=== PATIENT | female | born 1980 ===

== ENCOUNTER 2022-10-20 06:50 | Emergency (ER) | payer SELFPAY ==
[~2022-10-20] VITALS: Ht 152.4 cm; Wt 79.7 kg
[2022-10-20] MEDS ORDERED: ONDANSETRON 4 MG/2 ML (SDV) Z0FRAN IVP STA (07:27)
[2022-10-20] MEDS ORDERED: KETOROLAC 15 MG/ML VIAL IVP STA (07:27)
[2022-10-20] MEDS ORDERED: fentaNYL INJ 100 MCG/2 ML AMP IVP STA (07:27)
[2022-10-20] MEDS ORDERED: NS IV 1000 ML 1,000 ML IV STA (07:27)
[2022-10-20 07:33] LABS: BILIRUBIN,URINE NEGATIVE (NEGATIVE); CLARITY,URINE TURBID; COLOR,URINE RED; GLUCOSE, URINE (UA) 1+ (NEGATIVE); KETONES,URINE 1+ (NEGATIVE); LEUKOCYTE ESTERASE ,URINE 3+ (NEGATIVE); NITRITE,URINE POSITIVE (NEGATIVE); PH,URINE 6.5 (5-9); PROTEIN,URINE 3+ (NEGATIVE); RBC,URINE TNTC /HPF
[2022-10-20 07:33] LABS: BASOPHILS # (AUTO) 0.1 10^3/uL (0.0-0.1); BASOPHILS % (AUTO) 1 % (0-10); EOSINOPHILS # (AUTO) 0.3 10^3/uL (0.0-0.3); EOSINOPHILS % (AUTO) 2 % (0-10); HEMATOCRIT 39 % (35-52); HEMOGLOBIN 13.6 g/dL (11.5-16.0); LYMPHOCYTES # (AUTO) 1.4 10^3/uL (1.0-4.0); LYMPHOCYTES % (AUTO) 12 % (12-44); MEAN CORPUSCULAR HEMOGLOBIN 29 pg (25-34); MEAN CORPUSCULAR HGB CONC 35 g/dL (32-36); MEAN CORPUSCULAR VOLUME 83 fL (80-99); MEAN PLATELET VOLUME 10.4 fL (9.0-12.2); MONOCYTES # (AUTO) 0.4 10^3/uL (0.0-1.0); MONOCYTES % (AUTO) 4 % (0-12); NEUTROPHILS # (AUTO) 9.3 10^3/uL (1.8-7.8); NEUTROPHILS % (AUTO) 81 % (42-75); PLATELET COUNT 282 10^3/uL (130-400); WHITE BLOOD COUNT 11.4 10^3/uL (4.3-11.0)
[2022-10-20 07:49] LABS: ALBUMIN 4.3 GM/DL (3.2-4.5); BILIRUBIN,TOTAL 0.3 MG/DL (0.1-1.0); CALCIUM 9.1 MG/DL (8.5-10.1); CREATININE SERUM 0.69 MG/DL (0.60-1.30); POTASSIUM 3.9 MMOL/L (3.6-5.0); TOTAL PROTEIN 7.4 GM/DL (6.4-8.2)
[2022-10-20] MEDS ORDERED: TELM40TA6 PO (07:56)
--- NOTE | 2022-10-20 07:59 | ED Abdominal Pain ---
General Chief Complaint: Abdominal/GI Problems Stated Complaint: LOWER ABD PAIN Nursing Triage Note: PT AMBULATE TO ROOM FS02 WITHOUT DIFFICULTY WITH C/O LOWER ABD PAIN STARTING AT 0400 TODAY. PT REPORTS TAKING ADVIL AT 0430 FOR PAIN. PT REPORTS VOMITING X1 BECAUSE OF THE PAIN. PT REPORTS LBM TODAY AT 0500. 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 She last ate around 430 or 5 PM. She did drink a little bit of water to take Advil at 4:30 AM. She had an episode of vomiting 1 time because of the pain after taking the Advil. Her last bowel movement was around 5 AM and was normal for her. She denies having any black tarry stool or blood in her stool. She is on her menstrual cycle currently but has never had severe pain like this with menses. She denies any vaginal discharge but has had painful urination. She denies any prior abdominal surgeries. She is G4, P4. She speaks a little bit of Wallisian but the is the main independent historian for the patient due to language barriers. Her point lay [place] language is Serbian and she is visiting from [place]. She does have a history of high blood pressure and takes Micardis (Telmisartan) 40 mg a day. She denies any allergies to medicines. Timing/Duration: 1-3 Hours Severity/Quality: Severe, Sharp, Stabbing Location: RLQ, Suprapubic Radiation: No Radiation Activities at Onset: Sleeping Modifying Factors: Worsens With Movement, Worsens With Palpation, Worsens With Urinating Associated Symptoms: Back Pain (low back pain); No Chest Pain, No Diaphoresis, No Fever/Chills, No Fatigue, No Headache, No Heartburn; Nausea/Vomiting; No Rash, No Shortness of Air, No Swelling/Mass in Abdomen, No Syncope, No Weakness Allergies and Home Medications Allergies Coded Allergies: No Known Drug Allergies (Unverified , 10/20/22) Patient Home Medication List Home Medication List Reviewed: Yes Ibuprofen (Ibuprofen) 600 Mg Tablet, 600 MG PO Q6H PRN for PAIN Prescribed by: KOKI LANTIGUAYART on 10/20/22826 Nitrofurantoin Monohyd/M-Cryst (Macrobid 100 mg Capsule) 100 Mg Capsule, 1 TAB PO BID Prescribed by: KOKI BURTONRT on 10/20/22826 Ondansetron (Ondansetron Odt) 4 Mg Tab.rapdis, 4 MG PO Q6H PRN for NAUSEA/VOMITING Prescribed by: KOKI GARCIA on 10/20/22826 Telmisartan (Telmisartan) 40 Mg Tablet, 40 MG PO DAILY Prescribed by: KOKI GARCIA on 10/20/22 075 Last Action: New Order Review of Systems Review of Systems Constitutional: No chills, No diaphoresis, No dizziness, No fever, No malaise EENTM: No Symptoms Reported Respiratory: No Symptoms Reported Cardiovascular: No Symptoms Reported Gastrointestinal: See HPI, Abdominal Pain; Denies Constipated, Denies Diarrhea; Nausea, Vomiting (x1) Genitourinary: See HPI, Pain Musculoskeletal: see HPI Skin: No rash Psychiatric/Neurological: No Symptoms Reported Endocrine: No Symptoms Reported Past Lznibxq-Prkhlg-Agtqph Hx Patient Social History Tobacco Use?: No Smoking Status: Never a Smoker Smokeless Tobacco Frequency: Never a User Use of E-Cig and/or Vaping dev: No Substance use?: No Alcohol Use?: No Pt feels they are or have been: No Past Medical History Surgery/Hospitalization HX: Hypertension Surgeries: No Respiratory: No Cardiac: Yes Hypertension Neurological: No Hx : 4 Hx Para: 4 Reproductive Disorders: No Genitourinary: No Gastrointestinal: No Musculoskeletal: No Endocrine: No HEENT: No Cancer: No Psychosocial: No Physical Exam Vital Signs Vital Signs - First Documented 10/20/22 07:23 Temp 36.3 Pulse 72 Resp 19 B/P (MAP) 123/75 (91) O2 Delivery Room Air Capillary Refill : Less Than 3 Seconds Height/Weight/BMI Height: '" Weight: lbs. oz. kg; 34.00 BMI Method: General Appearance: WD/WN, mild distress (complaining of pain to right flank, RLQ, pelvic area) HEENT: PERRL/EOMI, pharynx normal Neck: non-tender, full range of motion, supple, normal inspection Respiratory: chest non-tender, lungs clear, normal breath sounds, no respiratory distress, no accessory muscle use Cardiovascular: normal peripheral pulses, regular rate, rhythm Gastrointestinal: normal bowel sounds, soft, no pulsatile mass; No distended; guarding; No rebound; tenderness (RLQ and suprapubic) Rectal: deferred Extremities: normal range of motion, non-tender, normal capillary refill Back: no CVA tenderness 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, alert, oriented x 3 Skin: normal color, warm/dry Progress/Results/Core Measures Results/Orders Lab Results Laboratory Tests Test 10/20/22 07:00 10/20/22 07:20 Range/Units Urine Color RED H Urine Clarity TURBID Urine pH 6.5 5-9 Urine Specific [place] 1.020 1.016-1.022 Urine Protein 3+ H NEGATIVE Urine Glucose (UA) 1+ H NEGATIVE Urine Ketones 1+ H NEGATIVE Urine Nitrite POSITIVE H NEGATIVE Urine Bilirubin NEGATIVE NEGATIVE Urine Urobilinogen 4.0 < = 1.0 MG/DL Urine Leukocyte Esterase 3+ H NEGATIVE Urine RBC (Auto) 3+ H NEGATIVE Urine RBC TNTC H /HPF Urine WBC /HPF Urine Crystals NONE /LPF Urine Bacteria /HPF Urine Casts NONE /LPF Urine Mucus NEGATIVE /LPF Urine Culture Indicated YES White Blood Count 11.4 H 4.3-11.0 10^3/uL Red Blood Count 4.73 3.80-5.11 10^6/uL Hemoglobin 13.6 11.5-16.0 g/dL Hematocrit 39 35-52 % Mean Corpuscular Volume 83 80-99 fL Mean Corpuscular Hemoglobin 29 25-34 pg Mean Corpuscular Hemoglobin Concent 35 32-36 g/dL Red Cell Distribution Width 13.3 10.0-14.5 % Platelet Count 282 130-400 10^3/uL Mean Platelet Volume 10.4 9.0-12.2 fL Immature Granulocyte % (Auto) 0 % Neutrophils (%) (Auto) 81 H 42-75 % Lymphocytes (%) (Auto) 12 12-44 % Monocytes (%) (Auto) 4 0-12 % Eosinophils (%) (Auto) 2 0-10 % Basophils (%) (Auto) 1 0-10 % Neutrophils # (Auto) 9.3 H 1.8-7.8 10^3/uL Lymphocytes # (Auto) 1.4 1.0-4.0 10^3/uL Monocytes # (Auto) 0.4 0.0-1.0 10^3/uL Eosinophils # (Auto) 0.3 0.0-0.3 10^3/uL Basophils # (Auto) 0.1 0.0-0.1 10^3/uL Immature Granulocyte # (Auto) 0.0 0.0-0.1 10^3/uL Sodium Level 137 135-145 MMOL/L Potassium Level 3.9 3.6-5.0 MMOL/L Chloride Level 101 98-107 MMOL/L Carbon Dioxide Level 21 21-32 MMOL/L Anion Gap 15 H 5-14 MMOL/L Blood Urea Nitrogen 10 7-18 MG/DL Creatinine 0.69 0.60-1.30 MG/DL Estimat Glomerular Filtration Rate 110 BUN/Creatinine Ratio 14 Glucose Level 116 H 70-105 MG/DL Calcium Level 9.1 8.5-10.1 MG/DL Corrected Calcium 8.9 8.5-10.1 MG/DL Total Bilirubin 0.3 0.1-1.0 MG/DL Aspartate Amino Transf (AST/SGOT) 21 5-34 U/L Alanine Aminotransferase (ALT/SGPT) 51 0-55 U/L Alkaline Phosphatase 107 40-136 U/L Total Protein 7.4 6.4-8.2 GM/DL Albumin 4.3 3.2-4.5 GM/DL Lipase 38 8-78 U/L My Orders Orders - KOKI GARCIA MD Comprehensive Metabolic Panel (10/20/22 07:27) Lipase (10/20/22 07:27) Ua Culture If Indicated (10/20/22 07:27) Ed Iv/Invasive Line Start (10/20/22 07:27) Cbc With Automated Diff (10/20/22 07:27) Ct Abdomen/Pelvis Wo (10/20/22 07:27) Ns Iv 1000 Ml (Sodium Chloride 0.9%) (10/20/22 07:27) Ketorolac Injection (Toradol Injection) (10/20/22 07:27) Ondansetron Injection (Zofran Injectio (10/20/22 07:27) Fentanyl Inj (Sublimaze Injection) (10/20/22 07:27) Urine Bedside (10/20/22 07:29) Urine Culture (10/20/22 07:00) Ceftriaxone 1 Gm Pre-Mix (Rocephin 1 Gm (10/20/22 08:24) Vital Signs/I&O 10/20/22 07:23 Temp 36.3 Pulse 72 Resp 19 B/P (MAP) 123/75 (91) O2 Delivery Room Air Blood Pressure Mean: 91 Progress Progress Note #1: Progress Note Potential diagnosis of kidney stone, appendicitis, colitis, diverticulitis, urinary tract infection, pyelonephritis, ovarian cyst, tubal . Obtain urine for UA and bedside test. IV established and labs drawn for CBC, CMP, Lipase. CT scan of abdomen/pelvis without contrast as pain was sudden onset so kidney stones is a possibility and would show up better without contrast. She does have some intra-abdominal fat that should help with natural contrast for the imaging. Give normal saline 1 L IV fluid bolus for hydration, Toradol 15 mg IV for pain, fentanyl 50 mcg IV for pain, Zofran 4 mg IV for nausea and vomiting. Counseled to not take anything by mouth until the test results were back. Urine was bloody as patient is on her menstrual cycle but bedside test is negative. Progress Note #2: Time: 07:57 Progress Note UA shows 3+ protein, Nitrate +, 3+ LE, blood. Culture reflexed. CBC with WBC count at upper limit of normal 11.4. Chemistry without acute significant abnormality. Normal renal and liver function tests as well as Lipase to help rule out pancreatitis. On my personal interpretation and review of her CT scan abdomen/pelvis without IV contrast she has inflammation in the RLQ. No kidney stones, obstruction or free air visualized. Awaiting radiologist reading on imaging. When reviewed results with patient and spouse she reports her pain is down to 3 or 4 now and nausea resolved. Progress Note #3: Time: 08:18 Progress Note I reviewed the radiologist report of the CT scan abdomen/pelvis without contrast and he reported that there was no acute process seen on the non-contrast study. Will administer Rocephin 1 gm IV for her UTI findings and continue with po medicine. Encourage fluids and hydration. Could try over the counter acetaminophen 650 mg every 6 hours as needed for pain and Ibuprofen 600 mg every 6 hours as needed for pain. Prescribe Macrobid 100 mg twice a day for UTI and Zofran ODT 4 mg every 6 hours as needed for nausea/vomiting and Ibuprofen 600 mg every 6 hours as needed for pain if she wants to take a single pill instead of 3 over the counter Advil. If pain is worsening or she has changes she could return for further evaluation. Given number for [facility] as an option for local provider since they say her PCP is in [place]. If pain does not go away with antibiotics and treatment then she could return or be seen in clinic for recheck. Diagnostic Imaging Diagonstic Imaging: CT Plain Films/CT/US/NM/MRI: abdomen, pelvis Comments NAME: NAVEED GIBSON [employer] REC#: [id number] PT STATUS: REG ER : 1980 PHYSICIAN: KOKI GARCIA MD ADMIT DATE: 10/20/22/ER FS Draft Date of Exam:10/20/22 CT ABDOMEN/PELVIS WO PROCEDURE: CT abdomen and pelvis without contrast. TECHNIQUE: Multiple contiguous axial images were obtained through the abdomen and pelvis without the use of intravenous contrast. Auto Exposure Controls were utilized during the CT exam to meet ALARA standards for radiation dose reduction. INDICATION: Right lower quadrant pain. Dysuria. Pelvic pain. COMPARISON: None. FINDINGS: Lung bases are clear. The liver, gallbladder, pancreas, spleen, adrenals, kidneys, collecting systems, bladder, appendix and reproductive structures are negative on this noncontrast exam. No free intraperitoneal air or fluid. No lymphadenopathy. No evidence of bowel obstruction. No acute osseous findings. IMPRESSION: No acute CT findings in the abdomen or pelvis. Dictated on workstation # [id number] Dict: 10/20/22 0805 Trans: 10/20/22 0814 [facility] [id number] Interpreted by: SUSHMA FLORIAN MD Electronically signed by: Reviewed: Reviewed by Me Departure Impression Primary Impression: Acute cystitis with hematuria Additional Impressions: Right flank pain RLQ abdominal pain Suprapubic pain, acute Disposition: HOME, SELF-CARE Condition: Improved Departure-Patient Inst. Decision time for Depature: 08:32 Referrals: NO,LOCAL PHYSICIAN (PCP) Primary Care Physician [facility] [place] [facility] [place] Patient Instructions: Flank Pain ED, Pelvic Pain ED, Urinary Tract Infection, Adult ED Add. Discharge Instructions: Stay well hydrated and drink extra water to help flush out the urine infection. Take the antibiotic until all the pills are gone to completely treat for the urine infection. May take acetaminophen 650 mg every 6 hours as needed for pain. May also take Ibuprofen 600 mg every 6 hours as needed for pain. This would be 3 of the over the counter 200 mg pills or one of the prescription pills that were sent to the pharmacy. Call [phone] to get established with a local doctor from [facility] clinic for continued care. If pain worsens or is not improving over the next 2-3 days then return or check with clinic for a repeat evaluation to see if there is something else causing your pain. All discharge instructions reviewed with patient and/or family. Voiced understanding. Mantngase gaurav hidratado y kitty agua adicional para ayudar a eliminar la infeccin de orina. [place] el antibitico hasta que se acaben todas las pastillas para tratar por completo la infeccin de orina. Puede jerry paracetamol 650 mg cada 6 horas segn sea necesario para el dolor. Tambin puede jerry ibuprofeno 600 mg cada 6 horas segn sea necesario para el dolor. Seran 3 de las pldoras de 200 mg de venta sunday o joshua de las pldoras recetadas que se enviaron a la farmacia. Llame al [phone] para establecer contacto con un mdico local de la clnica [facility] para recibir atencin continua. Si el dolor empeora o no mejora andrea los prximos 2 o 3 marte, regrese o cons ulte con la clnica para joshua evaluacin repetida para albertina si hay algo ms que le est causando el dolor. Scripts Ondansetron (Ondansetron Odt) 4 Mg Tab.rapdis 4 MG PO Q6H PRN for NAUSEA/VOMITING for 2 Days, #8 TAB 0 Refills Prov: KOKI GARCIA MD 10/20/22 Ibuprofen (Ibuprofen) 600 Mg Tablet 600 MG PO Q6H PRN for PAIN for 5 Days, #20 TAB 0 Refills Prov: KOKI GARCIA MD 10/20/22 Nitrofurantoin Monohyd/M-Cryst (Macrobid 100 mg Capsule) 100 Mg Capsule 1 TAB PO BID for UTI for 7 Days, #14 CAP 0 Refills Prov: KOKI GARCIA MD 10/20/22 Telmisartan (Telmisartan) 40 Mg Tablet 40 MG PO DAILY for Blood Pressure for 30 Days, #30 TAB Prov: KOKI GARCIA MD 10/20/22 KOKI GARCIA MD Oct 20, 2022 07:59
--- NOTE | 2022-10-20 08:15 | Diagnostic Imaging Report ---
PROCEDURE: CT abdomen and pelvis without contrast. TECHNIQUE: Multiple contiguous axial images were obtained through the abdomen and pelvis without the use of intravenous contrast. Auto Exposure Controls were utilized during the CT exam to meet ALARA standards for radiation dose reduction. INDICATION: Right lower quadrant pain. Dysuria. Pelvic pain. COMPARISON: None. FINDINGS: Lung bases are clear. The liver, gallbladder, pancreas, spleen, adrenals, kidneys, collecting systems, bladder, appendix and reproductive structures are negative on this noncontrast exam. No free intraperitoneal air or fluid. No lymphadenopathy. No evidence of bowel obstruction. No acute osseous findings. IMPRESSION: No acute CT findings in the abdomen or pelvis. Dictated by: Dictated on workstation # [id number]
[2022-10-20] MEDS ORDERED: cefTRIAXone 1 GM PRE-MIX 50 ML IV STA (08:24)
[2022-10-20] MEDS ORDERED: NITR-65 PO (08:27)
[2022-10-20] MEDS ORDERED: ONDA4TAB11 PO (08:27)
[2022-10-20] MEDS ORDERED: IBUP-1773 PO (08:27)
[2022-10-20 08:49] VITALS: BP 126/65
== END 2022-10-20 08:50 | disposition home or self-care (01) ==
LOC: ER FS 06:58
DX: N30.01 Acute cystitis with hematuria (principal); Z32.02 Encounter for pregnancy test, result negative
CPT/HCPCS: 36415; 74176; 80053; 81000; 83690; 84703; 85025; 87088